=== PATIENT | female | born 1945 | race Caucasian/White ===

== ENCOUNTER 2023-11-18 00:19 | Inpatient (IN) ==
[2023-11-18] MEDS ORDERED: Lactated Ringers 1000 ml BAG 1,000 ML IV ONE (01:58)
[2023-11-18 02:21] LABS: ABS Lymphocytes 0.7 10^3/uL (1.0-4.8); Eosinophil % 0.1 %; Hematocrit 33.7 % (35-45); Hemoglobin 11.1 g/dL (11.5-14.3); Lymphocyte % 5.1 %; Mean Corpuscular Hemoglobin 32.4 pg (27-33); Mean Corpuscular Volume 98.1 fL (80-97); Mean Platelet Volume 7.5 fL (7.5-11.2); Platelet Count 178 10^3/uL (150-450); Red Blood Count 3.44 10^6/uL (3.63-4.92); Red Cell Distribution Width 12.7 % (12-17); White Blood Count 13.8 10^3/uL (3.8-11.8)
[2023-11-18 02:24] LABS: INR 1.16 (0.83-1.13)
[2023-11-18 02:40] LABS: Albumin 3.2 g/dL (3.2-5.2); Calcium 8.5 mg/dL (8.6-10.3); Creatinine, Serum 1.14 mg/dL (0.51-0.95); Globulin 3.1 g/dL (2-4); Total Bilirubin 0.6 mg/dL (0.2-1.0); Total Protein 6.3 g/dL (6.4-8.9)
[2023-11-18 03:33] LABS: High Sensitivity Troponin 1 Hr 139 pg/mL (<15)
[2023-11-18] MEDS ORDERED: cefTRIAXone 1 gm/50 mL D5W 1 GM/50 ML BAG IV ONE (04:24)
[2023-11-18] MEDS ORDERED: Azithromycin 500 mg/250 ml NS 500 MG/250 ML BAG IVPB ONE (04:24)
[2023-11-18] MEDS: Enoxaparin 40 MG/0.4 ML SYR SUBCUT SCH (06:04)
[2023-11-18 06:29] LABS: ABS Lymphocytes 0.6 10^3/uL (1.0-4.8); ABS Neutrophils 11.5 10^3/uL (1.5-7.6); ABS Nucleated RBC 0.02 10^3/ul; Eosinophil % 0.2 %; Hematocrit 35.6 % (35-45); Hemoglobin 11.7 g/dL (11.5-14.3); Lymphocyte % 4.9 %; Mean Corpuscular Hemoglobin 31.9 pg (27-33); Mean Corpuscular Hgb Conc 32.8 g/dL (31-36); Mean Corpuscular Volume 97.4 fL (80-97); Mean Platelet Volume 7.5 fL (7.5-11.2); Nucleated Red Blood Cells % 0.1 %/100WBC (0.0-0.8); Platelet Count 196 10^3/uL (150-450); Red Blood Count 3.66 10^6/uL (3.63-4.92); Red Cell Distribution Width 12.5 % (12-17); White Blood Count 13.2 10^3/uL (3.8-11.8)
[2023-11-18 06:42] LABS: Calcium 8.7 mg/dL (8.6-10.3); Creatinine, Serum 0.91 mg/dL (0.51-0.95); Potassium 4.3 mmol/L (3.5-5.0); eGFR CKD-EPI 64.2 (>60)
[2023-11-18] MEDS: Aspirin EC 81 mg TAB.EC (enteric coated) PO SCH (20:51)
[2023-11-18] MEDS: DOXYcycline 100 MG in NS 0.9% 250 ml 250 ML IVPB SCH (21:03)
[2023-11-19] MEDS: HYDROcodone/ACETAMIN 5/325 mg TAB PO PRN ×2 (01:34→08:26)
[2023-11-19] MEDS: Enoxaparin 40 MG/0.4 ML SYR SUBCUT SCH (05:01)
[2023-11-19] MEDS: cefTRIAXone 1 gm/50 mL NS BAG 1 GM/50 ML BAG IV SCH (05:04)
[2023-11-19 07:27] LABS: ABS Eosinophils 0.1 10^3/uL (0.0-0.5); ABS Lymphocytes 0.6 10^3/uL (1.0-4.8); ABS Monocytes 0.6 10^3/uL (0.0-0.9); ABS Neutrophils 5.5 10^3/uL (1.5-7.6); Eosinophil % 1.1 %; Hematocrit 31.6 % (35-45); Hemoglobin 10.4 g/dL (11.5-14.3); Lymphocyte % 8.7 %; Mean Corpuscular Hgb Conc 32.8 g/dL (31-36); Mean Corpuscular Volume 97.5 fL (80-97); Mean Platelet Volume 7.7 fL (7.5-11.2); Platelet Count 170 10^3/uL (150-450); Red Blood Count 3.24 10^6/uL (3.63-4.92); Red Cell Distribution Width 12.3 % (12-17); White Blood Count 6.8 10^3/uL (3.8-11.8)
[2023-11-19 07:41] LABS: Calcium 8.8 mg/dL (8.6-10.3); Creatinine, Serum 0.54 mg/dL (0.51-0.95); Potassium 4.4 mmol/L (3.5-5.0); eGFR CKD-EPI 93.6 (>60)
[2023-11-19] MEDS: DOXYcycline 100 MG in NS 0.9% 250 ml 250 ML IVPB SCH ×2 (08:31→19:42)
[2023-11-19] MEDS ORDERED: Furosemide 20 mg/2 ml IV VIAL IV SLOW PU ONE (10:27)
[2023-11-19] MEDS: Aspirin EC 81 mg TAB.EC (enteric coated) PO SCH (19:43)
[2023-11-20] MEDS: Enoxaparin 40 MG/0.4 ML SYR SUBCUT SCH (05:07)
[2023-11-20] MEDS: cefTRIAXone 1 gm/50 mL NS BAG 1 GM/50 ML BAG IV SCH (05:14)
[2023-11-20] MEDS: HYDROcodone/ACETAMIN 5/325 mg TAB PO PRN (08:26)
[2023-11-20] MEDS: DOXYcycline 100 MG in NS 0.9% 250 ml 250 ML IVPB SCH (08:28)
[2023-11-20 16:29] VITALS: BP 139/74
== END 2023-11-20 15:43 | disposition home or self-care (01) | DRG 193 ==
LOC: ED 00:19 → EDHOLD 05:06 → MEDTELE 10:19
PROVIDERS: ADMIT Internal Medicine; ATTEND Internal Medicine